=== PATIENT | female | born 1995 | race Caucasian/White ===

== ENCOUNTER 2023-02-21 17:35 | Emergency (ER) | payer BC ==
[2023-02-21 18:07] VITALS: TEMP 99; BMI 21.2
[2023-02-21] MEDS ORDERED: DEXAMETHASONE SOD PHOSPHATE 10 MG/1 ML VIAL IM ONE (18:45)
[2023-02-21] MEDS ORDERED: DEXAMETHASONE SOD PHOSPHATE 10 MG/1 ML VIAL ONE (18:55)
[2023-02-21] MEDS ORDERED: FAMOTIDINE 20 MG TABLET PO ONE (19:01)
[2023-02-21] MEDS ORDERED: FAMOTIDINE 20 MG TABLET ONE (19:05)
[2023-02-21 19:55] VITALS: BP 113/80; PULSE 92; RESP 19
== END 2023-02-21 20:44 | disposition home or self-care (01) ==
LOC: JER 17:35 → JERFT 17:35
PROC: 3E023GC Introduction of Other Therapeutic Substance into Muscle, Percutaneous Approach (ICD-10-PCS; principal; 2023-02-21)
DX: T78.40XA Allergy, unspecified, initial encounter (principal)
CPT/HCPCS: 99284-25; J1100